=== PATIENT | female | born 1945 | race Two or more races ===

== ENCOUNTER 2021-08-22 10:32 | Inpatient (IN) | payer OTHER ==
[~2021-08-22] VITALS: Ht 152.4 cm; Wt 56.7 kg
[2021-08-22] MEDS ORDERED: IOHEXOL 350 MG/ML 100ML IJ ONE (11:08)
[2021-08-22 11:32] LABS: Basophils # (auto) 0.1 10 ^3/uL (0-0.2); Basophils % (auto) 0.8 % (0.0-2.0); Eosinophils # (auto) 0.1 10 ^3/uL (0-0.8); Eosinophils % (auto) 0.8 % (0.0-7.0); Hematocrit 30.2 % (36.0-46.0); Hemoglobin 9.8 g/dL (12.2-16.2); Lymphocytes # (auto) 0.9 10 ^3/uL (0.4-5.4); Lymphocytes % (auto) 9.7 % (10.0-50.0); Mean Corpuscular Hemoglobin 25.8 pg (28.0-32.0); Mean Corpuscular Hgb Conc. 32.5 g/dL (32.0-36.0); Mean Corpuscular Volume 79.4 fL (80.0-100.0); Monocytes # (auto) 0.7 10 ^3/uL (0-1.3); Monocytes % (auto) 7.3 % (0.0-12.0); Neutrophils # (auto) 7.5 10 ^3/uL (1.6-8.6); Neutrophils % (auto) 81.4 % (37.0-80.0); Nucleated Red Blood Cells % 0.1 %; Red Cell Distribution Width 13.9 % (11.8-14.3); White Blood Cell 9.2 10^3/uL (4.4-10.8)
[2021-08-22 11:49] LABS: Albumin 2.9 g/dL (3.4-5.0); Anion Gap 7 (5-15); Blood Urea Nitrogen 22 mg/dL (7-18); Calcium 7.6 mg/dL (8.5-10.1); Carbon Dioxide 22 mmol/L (21-32); Chloride 95 mmol/L (98-107); Glucose 325 mg/dL (74-106); Potassium 4.3 mmol/L (3.5-5.1); Sodium 124 mmol/L (136-145)
[2021-08-22 12:05] LABS: Alanine Aminotransferase 63 U/L (13-56); Alkaline Phosphatase 135 U/L (45-117); Aspartate Aminotransferase 62 U/L (15-37); BUN/Creatinine Ratio 27.2; Bilirubin, Total 0.6 mg/dL (0.2-1.0); GFR African American 89 mL/min; GFR Non-African American 73 mL/min; Total Protein 6.7 g/dL (6.4-8.2)
[2021-08-22] MEDS ORDERED: SODIUM CHLORIDE 0.9% 1,000 ML IV ONE (14:15)
[2021-08-22 14:37] LABS: Urine Bacteria NONE SEEN /hpf (None Seen); Urine Blood TRACE /uL (Negative); Urine WBC 1 /hpf (0 - 5)
[2021-08-22] MEDS ORDERED: LORazepam 2MG/ML-1ML VIAL IV ONE (14:45)
[2021-08-22 14:47] LABS: Urine Specific Gravity > 1.050 (1.001-1.035)
[2021-08-22] MEDS ORDERED: FUROSEMIDE 40 MG/4 ML VIAL ONE (14:52)
[2021-08-22] MEDS ORDERED: FUROSEMIDE 40 MG/4 ML VIAL IV ONE (15:00)
[2021-08-22] MEDS ORDERED: SUCCINYLCHOLINE CHLORIDE 20 MG/ML 10ML VIAL IV ONE ×2 (15:04→15:15)
[2021-08-22] MEDS ORDERED: ETOMIDATE (2MG/ML) 20ML VIAL IV ONE ×2 (15:04→15:15)
[2021-08-22] MEDS ORDERED: MIDAZOLAM DRIP 50 mg/50mL 50 ML IV ONE (15:05)
[2021-08-22] MEDS ORDERED: MIDAZOLAM DRIP 50 mg/50mL 50 ML IV SCH (15:15)
[2021-08-22] MEDS ORDERED: ENOXAPARIN SOD 30 MG/0.3 ML SYRINGE SC ONE (18:15)
[2021-08-22] MEDS ORDERED: NITROGLYCERIN 0.4 MG SL TAB SL PRN (18:15)
[2021-08-22] MEDS ORDERED: DEXTROSE (50%) 50ML SYRG IV ONE (18:15)
[2021-08-22] MEDS ORDERED: MORPHINE SULFATE INJECTION 2 MG/ML SYRG IV PRN (18:15)
[2021-08-22] MEDS: ASPirin 81 mg TAB PO SCH (18:18)
[2021-08-22] MEDS ORDERED: OMNIPAQUE ORAL SOLN 500ml 12mg/ml PO ONE (18:35)
[2021-08-22] MEDS: ALBUTEROL SULF 2.5 MG/0.5ML(0.5%) NEB SOLN NEB SCH (19:01)
[2021-08-22] MEDS: IPRATROPIUM BROM 0.5 MG/2.5ML INH SOL NEB SCH (19:01)
[2021-08-22 19:13] LABS: INR 1.18 (0.9-1.15)
[2021-08-22 19:15] LABS: Cholesterol 103 mg/dL (< 200)
[2021-08-22 19:17] LABS: HDL Cholesterol 57 mg/dL (40-59); LDL Cholesterol 41 mg/dL (< 100); Triglycerides 68 mg/dL (< 150)
[2021-08-22 19:46] LABS: Sodium Urine 74 mmol/L (40-220)
[2021-08-22 19:48] LABS: Creatinine, Urine 18 mg/dL (30.0-125.0)
[2021-08-22 19:50] LABS: % Iron Saturation 6.1 % (15-50)
[2021-08-22 19:55] VITALS: BP 147/75
[2021-08-22] MEDS ORDERED: InsuLIN REG 1unit/0.01ml Soln (100units/ml) SC ONE (22:00)
[2021-08-22] MEDS ORDERED: ACCU-CHEK COMFORT CURVE STRIP VI ONE (22:00)
[2021-08-22] MEDS: FUROSEMIDE 40 MG/4 ML VIAL IV SCH (22:57)
[2021-08-23] MEDS: ALBUTEROL SULF 2.5 MG/0.5ML(0.5%) NEB SOLN NEB SCH ×3 (00:50→12:15)
[2021-08-23] MEDS: IPRATROPIUM BROM 0.5 MG/2.5ML INH SOL NEB SCH ×3 (00:51→12:15)
[2021-08-23 05:18] LABS: Magnesium 2.2 mg/dL (1.6-2.6); Phosphorus 3.2 mg/dL (2.5-4.90)
[2021-08-23] MEDS: ASPirin 81 mg TAB PO SCH (10:59)
[2021-08-23] MEDS: FUROSEMIDE 40 MG/4 ML VIAL IV SCH ×2 (10:59→21:42)
[2021-08-23] MEDS ORDERED: METOPROLOL SUCCINATE XL 50 MG TAB PO SCH (12:30)
[2021-08-23 13:12] LABS: Basophils # (auto) 0.1 10 ^3/uL (0-0.2); Eosinophils # (auto) 0 10 ^3/uL (0-0.8); White Blood Cell 8.2 10^3/uL (4.4-10.8)
[2021-08-23 13:13] LABS: Basophils % (auto) 0.7 % (0.0-2.0); Eosinophils % (auto) 0.5 % (0.0-7.0); Hematocrit 29.4 % (36.0-46.0); Lymphocytes # (auto) 0.7 10 ^3/uL (0.4-5.4); Mean Corpuscular Hemoglobin 26.4 pg (28.0-32.0); Mean Corpuscular Volume 77.7 fL (80.0-100.0); Monocytes # (auto) 0.6 10 ^3/uL (0-1.3); Monocytes % (auto) 7.1 % (0.0-12.0); Neutrophils # (auto) 6.8 10 ^3/uL (1.6-8.6); Neutrophils % (auto) 82.7 % (37.0-80.0); Red Blood Cells 3.78 10^6/uL (4.0-5.20); Red Cell Distribution Width 13.9 % (11.8-14.3)
[2021-08-23 13:28] LABS: Albumin 2.7 g/dL (3.4-5.0); Calcium 7.6 mg/dL (8.5-10.1); Potassium 3.7 mmol/L (3.5-5.1)
[2021-08-23 13:32] LABS: BUN/Creatinine Ratio 17.6; Bilirubin, Total 0.6 mg/dL (0.2-1.0); Total Protein 6.4 g/dL (6.4-8.2)
[2021-08-23] MEDS ORDERED: SERT50TA19 PO (14:59)
[2021-08-23] MEDS ORDERED: LATA0.0019 OP (14:59)
[2021-08-23] MEDS ORDERED: BUSP5TAB51 PO (14:59)
[2021-08-23] MEDS ORDERED: LEV100T PO (14:59)
[2021-08-23] MEDS ORDERED: ATOR40TA52 PO (14:59)
[2021-08-23] MEDS ORDERED: AMLO-489 PO (14:59)
[2021-08-23] MEDS ORDERED: SERT-376 PO (14:59)
[2021-08-23] MEDS ORDERED: ALEN35TA18 PO (14:59)
[2021-08-23] MEDS ORDERED: OXYB5SYP4 PO (14:59)
[2021-08-23] MEDS ORDERED: INSLISPI SC (15:02)
[2021-08-23] MEDS ORDERED: INSLANTI SC (15:03)
[2021-08-23] MEDS ORDERED: OXYB5TAB61 PO (15:05)
[2021-08-23] MEDS ORDERED: METF-929 PO (15:24)
[2021-08-23] MEDS ORDERED: DULO60CA PO (15:26)
[2021-08-23] MEDS ORDERED: POTA-220 PO (17:09)
[2021-08-23] MEDS ORDERED: METO-6 PO (17:09)
[2021-08-23] MEDS ORDERED: ASPI1CHW15 PO (17:09)
[2021-08-23] MEDS ORDERED: APIX5TAB OR (17:11)
[2021-08-23] MEDS ORDERED: ENOXAPARIN SOD 60 MG/0.6 ML SYRINGE SC SCH (22:00)
[2021-08-24 00:02] VITALS: BP 131/79
[2021-08-24] MEDS ORDERED: POTASSIUM CHL 20 Meq TABLET PO SCH (10:00)
== END 2021-08-23 23:56 | disposition home health service (06) | DRG 291 ==
LOC: ER 10:32 → TELE 18:01 → OBSVTOIN 08-23 10:22
PROVIDERS: ADMIT Hospitalist; ATTEND Hospitalist
PROC: 0W993ZZ Drainage of Right Pleural Cavity, Percutaneous Approach (ICD-10-PCS; principal; 2021-08-23)
DX: I13.0 Hypertensive heart and chronic kidney disease with heart failure and stage 1 through stage 4 chronic kidney disease, or unspecified chronic kidney disease (principal); J96.01 Acute respiratory failure with hypoxia; I50.21 Acute systolic (congestive) heart failure; E44.0 Moderate protein-calorie malnutrition; E87.1 Hypo-osmolality and hyponatremia; J98.11 Atelectasis; D63.1 Anemia in chronic kidney disease; E03.9 Hypothyroidism, unspecified; E11.22 Type 2 diabetes mellitus with diabetic chronic kidney disease; E11.65 Type 2 diabetes mellitus with hyperglycemia; E66.9 Obesity, unspecified; E78.5 Hyperlipidemia, unspecified; I48.91 Unspecified atrial fibrillation; N18.2 Chronic kidney disease, stage 2 (mild); Z20.822 Contact with and (suspected) exposure to COVID-19; F41.9 Anxiety disorder, unspecified; Z68.24 Body mass index [BMI] 24.0-24.9, adult; R10.9 Unspecified abdominal pain
CPT/HCPCS: 36415; 36600; 71045; 71275; 76942; 80053; 80061; 81001; 82570; 82805; 82962; 83036; 83540; 83550; 83735; 83880; 83930; 83935; 83986; 84100; 84295; 84300; 84484; 85025; 85379; 85610; 87070; 87205; 87426; 89051; 93306; 94640; 96361; 96374; 99291; G0378; J0330; J1815; J2250

== ENCOUNTER 2021-08-25 15:38 | Inpatient (IN) | payer OTHER ==
[~2021-08-25] VITALS: Ht 152.4 cm; Wt 55.6 kg
[~2021-08-25 15:38] MED LIST: ALEN35TA18 PO; AMLO-489 PO; APIX5TAB OR; ASPI1CHW15 PO; ATOR40TA52 PO; BUSP5TAB51 PO; DULO60CA PO; INSLANTI SC; INSLISPI SC; LATA0.0019 OP; LEV100T PO; METF-929 PO; METO-6 PO; OXYB5TAB61 PO; POTA-220 PO; SERT50TA19 PO
[2021-08-25 16:20] LABS: Basophils # (auto) 0.1 10 ^3/uL (0-0.2); Eosinophils # (auto) 0.1 10 ^3/uL (0-0.8); Lymphocytes # (auto) 1.6 10 ^3/uL (0.4-5.4); Monocytes # (auto) 0.8 10 ^3/uL (0-1.3); Neutrophils # (auto) 7.8 10 ^3/uL (1.6-8.6); Red Blood Cells 3.93 10^6/uL (4.0-5.20); White Blood Cell 10.4 10^3/uL (4.4-10.8)
[2021-08-25 16:22] LABS: Eosinophils % (auto) 1.1 % (0.0-7.0); Hematocrit 30.7 % (36.0-46.0); Lymphocytes % (auto) 15.7 % (10.0-50.0); Mean Corpuscular Hemoglobin 25.6 pg (28.0-32.0); Mean Corpuscular Hgb Conc. 32.7 g/dL (32.0-36.0); Mean Corpuscular Volume 78.2 fL (80.0-100.0); Monocytes % (auto) 7.2 % (0.0-12.0); Nucleated Red Blood Cells % 0.1 %; Red Cell Distribution Width 13.9 % (11.8-14.3)
[2021-08-25 16:35] LABS: Albumin 3.1 g/dL (3.4-5.0); Anion Gap 8 (5-15); Blood Urea Nitrogen 46 mg/dL (7-18); Carbon Dioxide 22 mmol/L (21-32); Chloride 92 mmol/L (98-107); Glucose 217 mg/dL (74-106); Magnesium 2.8 mg/dL (1.6-2.6); Potassium 4.9 mmol/L (3.5-5.1); Sodium 122 mmol/L (136-145)
[2021-08-25 16:40] LABS: Alanine Aminotransferase 58 U/L (13-56); Alkaline Phosphatase 163 U/L (45-117); Aspartate Aminotransferase 69 U/L (15-37); Bilirubin, Total 0.5 mg/dL (0.2-1.0); GFR African American 56 mL/min; GFR Non-African American 46 mL/min; Total Protein 7.3 g/dL (6.4-8.2)
[2021-08-25] MEDS ORDERED: NITROGLYCERIN 0.4 MG SL TAB SL PRN (17:15)
[2021-08-25] MEDS ORDERED: MORPHINE SULFATE INJECTION 2 MG/ML SYRG IV PRN (17:15)
[2021-08-25] MEDS ORDERED: hydrALAZINE HCL 20 MG/ML VL IV PRN (17:15)
[2021-08-25] MEDS ORDERED: FUROSEMIDE 40 MG/4 ML VIAL IV SCH (17:15)
[2021-08-25] MEDS ORDERED: ALBUTEROL SULF 2.5 MG/0.5ML(0.5%) NEB SOLN NEB PRN (17:15)
[2021-08-25] MEDS ORDERED: FUROSEMIDE 40 MG/4 ML VIAL ONE (17:28)
[2021-08-25] MEDS ORDERED: DEXTROSE (50%) 50ML SYRG IV PRN (17:30)
[2021-08-25] MEDS ORDERED: FUROSEMIDE 20 MG/2 ML VIAL ONE (17:33)
[2021-08-25] MEDS ORDERED: FUROSEMIDE 20 MG/2 ML VIAL IV ONE (17:35)
[2021-08-25] MEDS ORDERED: ALENDRONATE SODIUM 10 MG TAB PO SCH (17:45)
[2021-08-25] MEDS: FUROSEMIDE 40 MG/4 ML VIAL IV SCH (17:49)
[2021-08-25 18:48] VITALS: BP 176/60
[2021-08-25 19:25] LABS: Urine Bacteria FEW /hpf (None Seen); Urine Blood 2+ /uL (Negative); Urine Mucus FEW (None Seen); Urine Specific Gravity 1.012 (1.001-1.035); Urine WBC 1 /hpf (0 - 5)
[2021-08-25 20:30] VITALS: BP 152/69
[2021-08-25 22:00] VITALS: BP 152/69
[2021-08-25] MEDS ORDERED: APIXABAN 5 MG TAB PO SCH (22:00)
[2021-08-25] MEDS: InsuLIN REG 1unit/0.01ml Soln (100units/ml) SC SCH (22:04)
[2021-08-25] MEDS: ACCU-CHEK COMFORT CURVE STRIP VI SCH (22:05)
[2021-08-25] MEDS: ATORVASTATIN 20 MG TAB PO SCH (22:05)
[2021-08-26] MEDS ORDERED: INFLUENZA QUAD 2020-2021 0.5 ML SYRG IM ONE (00:15)
[2021-08-26 05:00] VITALS: BP 138/65
[2021-08-26] MEDS: InsuLIN REG 1unit/0.01ml Soln (100units/ml) SC SCH ×4 (05:31→21:29)
[2021-08-26] MEDS: LEVOTHYROXINE SODIUM 100 MCG TAB PO SCH (05:31)
[2021-08-26] MEDS: ACCU-CHEK COMFORT CURVE STRIP VI SCH ×4 (05:32→21:30)
[2021-08-26] MEDS: FUROSEMIDE 40 MG/4 ML VIAL IV SCH ×2 (05:43→18:36)
[2021-08-26 06:00] LABS: Basophils # (auto) 0 10 ^3/uL (0-0.2); Basophils % (auto) 0.4 % (0.0-2.0); Eosinophils # (auto) 0.1 10 ^3/uL (0-0.8); Eosinophils % (auto) 0.7 % (0.0-7.0); Hemoglobin 9.4 g/dL (12.2-16.2); Lymphocytes # (auto) 1.3 10 ^3/uL (0.4-5.4); Lymphocytes % (auto) 14.6 % (10.0-50.0); Mean Corpuscular Hemoglobin 25.9 pg (28.0-32.0); Mean Corpuscular Hgb Conc. 33.5 g/dL (32.0-36.0); Mean Corpuscular Volume 77.3 fL (80.0-100.0); Monocytes # (auto) 0.7 10 ^3/uL (0-1.3); Monocytes % (auto) 8.1 % (0.0-12.0); Neutrophils # (auto) 6.5 10 ^3/uL (1.6-8.6); Neutrophils % (auto) 76.2 % (37.0-80.0); Red Blood Cells 3.63 10^6/uL (4.0-5.20); Red Cell Distribution Width 13.7 % (11.8-14.3); White Blood Cell 8.6 10^3/uL (4.4-10.8)
[2021-08-26 06:48] LABS: Calcium 7.9 mg/dL (8.5-10.1); Potassium 3.4 mmol/L (3.5-5.1)
[2021-08-26 06:50] LABS: BUN/Creatinine Ratio 48.7
[2021-08-26 09:00] VITALS: BP 143/68
[2021-08-26] MEDS: amLODIPine BESYLATE 5 MG TAB PO SCH (09:16)
[2021-08-26] MEDS: ASPirin 81 mg TAB PO SCH (09:16)
[2021-08-26] MEDS: SERTRALINE HCL 50 MG TAB PO SCH (09:18)
[2021-08-26] MEDS: OXYBUTYNIN CHL 5 MG TAB PO SCH (09:18)
[2021-08-26] MEDS: busPIRone HCL 10 MG TAB PO SCH (09:19)
[2021-08-26] MEDS: METOPROLOL SUCCINATE XL 50 MG TAB PO SCH (09:20)
[2021-08-26] MEDS ORDERED: DULoxetine HCL 30 MG CAP PO SCH (10:00)
[2021-08-26] MEDS ORDERED: HYDROcodone-ACET 5/325MG TAB PO PRN (10:30)
[2021-08-26] MEDS ORDERED: POTA10TA51 PO (10:36)
[2021-08-26] MEDS ORDERED: FURO1TAB31 PO (10:36)
[2021-08-26 13:00] VITALS: BP 127/68
[2021-08-26 17:00] VITALS: BP 112/59
[2021-08-26 20:39] LABS: Calcium 8.2 mg/dL (8.5-10.1); Potassium 3.7 mmol/L (3.5-5.1)
[2021-08-26 21:21] LABS: BUN/Creatinine Ratio 30.1
[2021-08-26] MEDS: ATORVASTATIN 20 MG TAB PO SCH (21:29)
[2021-08-26] MEDS ORDERED: LATANOPROST 0.005 % OPTH(EYE) SOL 2.5ML OP SCH (22:00)
[2021-08-26 22:45] VITALS: BP 114/51
[2021-08-27] MEDS ORDERED: FUROSEMIDE 40 MG/4 ML VIAL IV ONE (00:45)
[2021-08-27 04:15] LABS: Basophils # (auto) 0.1 10 ^3/uL (0-0.2); Eosinophils # (auto) 0.2 10 ^3/uL (0-0.8); Lymphocytes # (auto) 1.7 10 ^3/uL (0.4-5.4)
[2021-08-27 04:18] LABS: Eosinophils % (auto) 2.5 % (0.0-7.0); Hematocrit 30.1 % (36.0-46.0); Lymphocytes % (auto) 19.7 % (10.0-50.0); Mean Corpuscular Hemoglobin 25.9 pg (28.0-32.0); Mean Corpuscular Hgb Conc. 33.1 g/dL (32.0-36.0); Mean Corpuscular Volume 78.2 fL (80.0-100.0); Monocytes % (auto) 11.6 % (0.0-12.0); Neutrophils # (auto) 5.8 10 ^3/uL (1.6-8.6); Neutrophils % (auto) 65.2 % (37.0-80.0); Nucleated Red Blood Cells % 0.1 %; Red Blood Cells 3.85 10^6/uL (4.0-5.20); Red Cell Distribution Width 13.9 % (11.8-14.3); White Blood Cell 8.9 10^3/uL (4.4-10.8)
[2021-08-27 04:39] LABS: Potassium 3.6 mmol/L (3.5-5.1)
[2021-08-27 04:43] LABS: Calcium 8.3 mg/dL (8.5-10.1)
[2021-08-27 05:12] VITALS: BP 130/53
[2021-08-27] MEDS: FUROSEMIDE 40 MG/4 ML VIAL IV SCH (06:00)
[2021-08-27] MEDS: InsuLIN REG 1unit/0.01ml Soln (100units/ml) SC SCH ×2 (06:10→11:50)
[2021-08-27] MEDS: LEVOTHYROXINE SODIUM 100 MCG TAB PO SCH (06:11)
[2021-08-27] MEDS: ACCU-CHEK COMFORT CURVE STRIP VI SCH ×2 (06:12→11:49)
[2021-08-27] MEDS ORDERED: FUROSEMIDE 100 MG/10ML VIAL IV ONE (07:15)
[2021-08-27 09:00] VITALS: BP 110/54
[2021-08-27] MEDS ORDERED: INFLUENZA QUAD 2020-2021 0.5 ML SYRG IM ONE (10:00)
[2021-08-27] MEDS: ASPirin 81 mg TAB PO SCH (10:29)
[2021-08-27] MEDS: busPIRone HCL 10 MG TAB PO SCH (10:30)
[2021-08-27] MEDS: amLODIPine BESYLATE 5 MG TAB PO SCH (10:30)
[2021-08-27] MEDS: OXYBUTYNIN CHL 5 MG TAB PO SCH (10:30)
[2021-08-27] MEDS: METOPROLOL SUCCINATE XL 50 MG TAB PO SCH (10:31)
[2021-08-27] MEDS: SERTRALINE HCL 50 MG TAB PO SCH (10:31)
[2021-08-29] MEDS ORDERED: ALENDRONATE 35 MG PO SCH (07:00)
== END 2021-08-27 12:34 | disposition home health service (06) | DRG 189 ==
LOC: ER 15:38 → EDBD 15:38 → TELE 17:07 → TELE-WESTW 20:15
PROVIDERS: ADMIT Internal Medicine; ATTEND Internal Medicine
PROC: 05HB33Z Insertion of Infusion Device into Right Basilic Vein, Percutaneous Approach (ICD-10-PCS; 2021-08-25)
PROC: B54MZZA Ultrasonography of Right Upper Extremity Veins, Guidance (ICD-10-PCS; 2021-08-25)
PROC: 3E0234Z Introduction of Serum, Toxoid and Vaccine into Muscle, Percutaneous Approach (ICD-10-PCS; principal; 2021-08-27)
DX: J96.01 Acute respiratory failure with hypoxia (principal); I50.43 Acute on chronic combined systolic (congestive) and diastolic (congestive) heart failure; N17.9 Acute kidney failure, unspecified; E87.1 Hypo-osmolality and hyponatremia; I11.0 Hypertensive heart disease with heart failure; I50.9 Heart failure, unspecified; E03.9 Hypothyroidism, unspecified; E11.65 Type 2 diabetes mellitus with hyperglycemia; E78.5 Hyperlipidemia, unspecified; Z23 Encounter for immunization; I48.91 Unspecified atrial fibrillation; Z20.822 Contact with and (suspected) exposure to COVID-19; Z79.899 Other long term (current) drug therapy; Z79.01 Long term (current) use of anticoagulants; Z90.49 Acquired absence of other specified parts of digestive tract
CPT/HCPCS: 36415; 36600; 71045; 80048; 80053; 81001; 82805; 82962; 83605; 83735; 83880; 84484; 85025; 85379; 87040; 87081; 87426; 93005; 96372; 99291; G0378; J1815

== ENCOUNTER 2022-02-03 16:54 | Emergency (ER) | payer OTHER ==
[~2022-02-03] VITALS: Ht 152.4 cm; Wt 54.4 kg
[~2022-02-03 16:54] MED LIST changes: +FURO1TAB31 PO; -POTA-220 PO; +POTA10TA51 PO
[2022-02-03 17:54] VITALS: BP 182/56
[2022-02-03 18:19] LABS: Eosinophils # (auto) 0.3 10 ^3/uL (0-0.8); Hemoglobin 9.1 g/dL (12.2-16.2); Monocytes # (auto) 0.6 10 ^3/uL (0-1.3); Nucleated Red Blood Cells % 0.1 %
[2022-02-03 18:21] LABS: Basophils # (auto) 0.1 10 ^3/uL (0-0.2); Basophils % (auto) 1.5 % (0.0-2.0); Eosinophils % (auto) 3.9 % (0.0-7.0); Hematocrit 27.3 % (36.0-46.0); Lymphocytes # (auto) 1.6 10 ^3/uL (0.4-5.4); Lymphocytes % (auto) 20.7 % (10.0-50.0); Mean Corpuscular Hemoglobin 26.2 pg (28.0-32.0); Mean Corpuscular Hgb Conc. 33.5 g/dL (32.0-36.0); Mean Corpuscular Volume 78.2 fL (80.0-100.0); Monocytes % (auto) 7.5 % (0.0-12.0); Neutrophils # (auto) 5.1 10 ^3/uL (1.6-8.6); Neutrophils % (auto) 66.4 % (37.0-80.0); Red Blood Cells 3.49 10^6/uL (4.0-5.20); Red Cell Distribution Width 16.5 % (11.8-14.3); White Blood Cell 7.7 10^3/uL (4.4-10.8)
[2022-02-03 18:34] LABS: Albumin 3.6 g/dL (3.4-5.0); Calcium 8.6 mg/dL (8.5-10.1); Potassium 4.3 mmol/L (3.5-5.1)
[2022-02-03 18:40] LABS: BUN/Creatinine Ratio 32.8; Bilirubin, Total 0.2 mg/dL (0.2-1.0); Total Protein 7.1 g/dL (6.4-8.2)
[2022-02-03] MEDS ORDERED: AZIT1POW PO (20:06)
== END 2022-02-03 20:42 | disposition home or self-care (01) ==
LOC: ER 16:54
DX: J20.9 Acute bronchitis, unspecified (principal); I11.0 Hypertensive heart disease with heart failure; I50.9 Heart failure, unspecified; I48.91 Unspecified atrial fibrillation; E11.9 Type 2 diabetes mellitus without complications; E78.5 Hyperlipidemia, unspecified; E03.9 Hypothyroidism, unspecified; Z90.49 Acquired absence of other specified parts of digestive tract; Z79.4 Long term (current) use of insulin; Z79.899 Other long term (current) drug therapy; Z79.82 Long term (current) use of aspirin
CPT/HCPCS: 36415; 71046; 80053; 83880; 84484; 85025; 93005